=== PATIENT | male | born 1980 | race Caucasian/White ===

== ENCOUNTER 2021-09-23 17:28 | Emergency (ER) | payer BC, SELFPAY ==
[2021-09-23 17:36] VITALS: BP 146/84; PULSE 100; RESP 12; TEMP 36.8; O2SAT 96; BMI 34.4
--- NOTE | 2021-09-23 18:07 | XRR_ITS ---
PROCEDURE INFORMATION: Exam: XR Left Foot Exam date and time: 09/23/2021 6:07 PM Age: 41 years old Clinical indication: Pain; Foot; Left; Additional info: Injury TECHNIQUE: Imaging protocol: XR Left foot. Views: 3 or more views. COMPARISON: No relevant prior studies available. FINDINGS: Bones/joints: Osseous structures are intact. Negative for fracture. Joint spaces are preserved. Soft tissues: Normal. XR/XR foot LT min 3V* [id number] IMPRESSION: No acute findings.
--- NOTE | 2021-09-23 18:07 | XRR_ITS ---
PROCEDURE INFORMATION: Exam: XR Left Ankle Exam date and time: 09/23/2021 6:07 PM Age: 41 years old Clinical indication: Pain; Ankle; Left; Additional info: Injury, fall TECHNIQUE: Imaging protocol: XR Left ankle. Views: 3 or more views. COMPARISON: No relevant prior studies available. FINDINGS: Bones/joints: Osseous structures are intact. Negative for fracture. Joint spaces are preserved. Soft tissues: Normal. XR/XR ankle LT min 3V* [id number] IMPRESSION: No acute findings.
--- NOTE | 2021-09-23 18:34 | W.ED.EXTPRO ---
HPI - Extremity Problem General: Chief complaint: Extremity Injury, Lower Stated complaint: LEFT ANKLE PAIN Time Seen by Provider: 09/23/21 18:34 History of Present Illness: 41-year-old male was jumping off his porch and landed awkward on a rock or something which caused his ankle to invert. At that time patient felt a pop in the ankle and since then has not been able to bear weight. Patient appears well. Minimal swelling is noted. No obvious deformity is noted. MD Complaint: extremity pain Onset (ago): hour(s) Pain Consistency: constant Location: left and lower extremity Quality: aching Relieving factors: rest Exacerbating factors: weight bearing Review of Systems General: Reports: 10 or more systems reviewed and unremarkable except in HPI and below Musc: Reports: joint pain (Left ankle) Physical Exam Const: COMMON NORMALS: alert Neck/C-Spine: COMMON NORMALS: full ROM Resp: COMMON NORMALS: normal respiratory effort Cardio: COMMON NORMALS: regular rate and regular rhythm RATE: regular rate RHYTHM: regular rhythm Extremity: LEFT LOWER EXTREMITY: Yes ankle joint (Left ankle has lateral tenderness, minimal swelling, normal range of motion) Left ankle: Yes inspection, Yes palpation, Yes ROM and Yes neurovascular exam Neuro: SENSORIUM/ORIENTATION: Yes alert Psych: COMMON NORMALS: cooperative Skin: COMMON NORMALS: no wounds Course Vital Signs: Vital signs: Vital Signs Temperature 98.3 F 09/23/21 17:36 Pulse Rate 100 09/23/21 17:36 Respiratory Rate 12 09/23/21 17:36 Blood Pressure 146/84 09/23/21 17:36 Pulse Oximetry 96 09/23/21 17:36 MDM - Extremity (Nontraumatic) Medical Decision Making [age]-year-old male patient comes in today with complaints of injury to the left ankle. On exam patient has lateral tenderness of the ankle. No obvious swelling or deformity is noted. Respirations are even and pulses are intact throughout all extremities. Differential diagnosis includes fracture, sprain, dislocation. X-rays noted no fractures or dislocation. Reviewed exam with patient with recommendations for treatment for sprain. Recommend crutches and a stirrup splint for support. Patient reported understanding and agreed to plan. Lab Data Radiology Impressions Ankle X-Ray 09/23/21 18:07 IMPRESSION: No acute findings. Foot X-Ray 09/23/21 18:07 IMPRESSION: No acute findings. Discharge Plan Discharge Patient Disposition: Home Clinical Impression: Left ankle sprain Condition: Stable Discharge Orders: Discharge ED (Routine); Ordered 09/23/21 Ordered By: Brady Thomas Discharge Diet: Usual diet Discharge Activity: Increase activity as tolerated Patient Instructions: Ankle Sprain (ED), Ankle Stirrup Splint (ED) Activity Restrictions/Additional Instructions: Increase activity as tolerated. Wear stirrup splint for the next 2 to 4 weeks to help support the ligaments and tendons until healed. When the ankle or joint is sprained these ligaments and tendons are often weakened and partially torn. It does take several weeks sometimes for them to recover. Use crutches for the next few days until he can start bearing weight comfortably. After that continue using the stirrup splint until range of motion exercises does not elicit pain. Follow-up with primary care in 1 week for recheck or orthopedist or tip cementer of your choice. Coding Level of Care Code ED [employer] History Problem Focused Exam Problem Focused Time Spent (min) 20
[2021-09-23 19:32] VITALS: RESP 18
== END 2021-09-23 19:32 | disposition home or self-care (01) ==
PROVIDERS: Emergency Provider Nurse Practitioner Family
DX: S93.402A Sprain of unspecified ligament of left ankle, initial encounter (principal); X50.1XXA Overexertion from prolonged static or awkward postures, initial encounter
CPT/HCPCS: 29515; 73610; 73630; 99283; E0114